=== PATIENT | female | born 1950 | race Caucasian/White ===

== ENCOUNTER 2017-01-09 12:34 | Emergency (ER) | payer MEDICARE, OTHER ==
[~2017-01-09] VITALS: Ht 167.6 cm; Wt 78.5 kg
[~2017-01-09 12:34] MED LIST: LEVO75TA PO; MOEX15TA2 PO; PRAV40TA2 PO
[2017-01-09] MEDS ORDERED: LEVO75TA PO (12:52)
[2017-01-09] MEDS ORDERED: TAMO20TA PO (12:52)
[2017-01-09] MEDS ORDERED: FEBU80TA2 PO (12:52)
[2017-01-09] MEDS ORDERED: AMLO5TAB2 PO (12:52)
[2017-01-09] MEDS ORDERED: LISI40TA PO (12:52)
[2017-01-09 13:26] LABS: HEMATOCRIT 36.8 % (34.6-47.8); HEMOGLOBIN 12.5 g/dL (11.7-16.4); WHITE BLOOD COUNT 5.4 x10^3/uL (3.4-10)
[2017-01-09] MEDS ORDERED: SODIUM CHLORIDE FLUSH 10ML SYR IVF ONE (13:30)
[2017-01-09] MEDS ORDERED: SODIUM CHLORIDE 0.9% 1,000ML IVBOLUS ONE (13:30)
[2017-01-09 13:39] LABS: ASPARTATE AMINO TRANSFERASE 81 U/L (15-37); BLOOD UREA NITROGEN 24 mg/dL (7-18)
[2017-01-09] MEDS ORDERED: OMNIPAQUE 350 MG/ML, 100ML BOTTLE ONE (15:25)
[2017-01-09 16:27] VITALS: BP 145/70
== END 2017-01-09 16:29 | disposition home or self-care (01) ==
LOC: ED 15:45
DX: R10.31 Right lower quadrant pain (principal); R10.11 Right upper quadrant pain; R10.13 Epigastric pain; I10 Essential (primary) hypertension; E07.9 Disorder of thyroid, unspecified; Z85.3 Personal history of malignant neoplasm of breast
CPT/HCPCS: 36415; 74177; 76700; 80053; 81001; 83690; 85025; 87086; 96360; 96361; 99285; J7030; Q9967

== ENCOUNTER → 2017-10-14 | Outpatient (CLI) | payer OTHER, MEDICARE ==
[~2017-10-14] MED LIST changes: +AMLO5TAB2 PO; +FEBU80TA2 PO; +HYDR12.53 PO; +LISI40TA PO; +TAMO20TA PO
[2017-10-14 14:41] LABS: BASOPHILS % (AUTO) 1 % (0-1); EOSINOPHILS # (AUTO) 0.41 x10^3/uL (0-0.4); EOSINOPHILS % (AUTO) 5 % (1-7); LYMPHOCYTES # (AUTO) 1.88 x10^3/uL (1-3.4); LYMPHOCYTES % (AUTO) 23 % (22-44); MD NO; MEAN CORPUSCULAR HEMOGLOBIN 29.6 pg (27.0-34.8); MEAN CORPUSCULAR HGB CONC 33.9 g/dL (32.4-35.8); MEAN CORPUSCULAR VOLUME 87.5 fL (80-100); MEAN PLATELET VOLUME 8.1 fL (7.4-10.4); MONOCYTES # (AUTO) 0.81 x10^3/uL (0.2-0.8); MONOCYTES % (AUTO) 10 % (2-9); NEUTROPHILS # (AUTO) 5.11 x10^3/uL (1.8-6.8); NEUTROPHILS % (AUTO) 62 % (42-75); PLATELET COUNT 289 x10^3/uL (130-400); RED BLOOD COUNT 4.12 x10^6/uL (3.82-5.3); RED CELL DISTRIBUTION WIDTH 12.5 % (9.6-15.2)
[2017-10-14 14:51] LABS: ALANINE AMINOTRANSFERASE 59 U/L (12-78); ALBUMIN 3.9 g/dL (3.4-5.0); ANION GAP 8 mmol/L (5-15); CALCIUM 9.6 mg/dL (8.5-10.1); CHLORIDE 106 mmol/L (98-107); CREATININE 1.42 mg/dL (0.55-1.02)
[2017-10-14 14:54] LABS: ALKALINE PHOSPHATASE 57 U/L (45-117); BILIRUBIN,TOTAL 0.3 mg/dL (0.2-1.0); TOTAL PROTEIN 7.7 g/dL (6.4-8.2)
== END | disposition home or self-care (01) ==
LOC: STAR 13:39
PROVIDERS: ATTEND Obstetrics & Gynecology Female Pelvic Medicine and Reconstructive Surgery
DX: Z01.818 Encounter for other preprocedural examination (principal); N81.4 Uterovaginal prolapse, unspecified; N39.3 Stress incontinence (female) (male)
CPT/HCPCS: 36415; 71046; 80053; 85025; 93005

== ENCOUNTER 2017-11-02 05:37 | Day surgery (SDC) | payer OTHER, MEDICARE ==
[~2017-11-02] VITALS: Ht 167.6 cm; Wt 76.6 kg
[2017-11-02] MEDS ORDERED: LACTATED RINGERS 1,000 ML IV SCH (06:13)
[2017-11-02 06:34] VITALS: BP 145/76
[2017-11-02] MEDS ORDERED: ACETAMINOPHEN 500 MG TABLET PO ONE (07:00)
[2017-11-02] MEDS ORDERED: ONDANSETRON ODT 8 MG PO ONE (07:00)
[2017-11-02] MEDS ORDERED: GABAPENTIN 300 MG CAPSULE PO ONE (07:00)
[2017-11-02] MEDS ORDERED: INDIGO CARMINE 0.8%, 5ML ONE (07:05)
[2017-11-02] MEDS ORDERED: BUPIVACAINE/PF 0.25% ONE (07:05)
[2017-11-02] MEDS ORDERED: THROMBIN 5,000 UNIT VIAL TP ONE (07:05)
[2017-11-02] MEDS ORDERED: EPINEPHRINE 1 MG/ML, 1ML ONE (07:06)
[2017-11-02] MEDS ORDERED: LIDOCAINE GEL 2%, 5ML ONE ×2 (07:23→09:37)
[2017-11-02] MEDS ORDERED: FENTANYL PF 100 MCG/2ML ONE (07:28)
[2017-11-02] MEDS ORDERED: MIDAZOLAM 1 MG/ML, 2ML ONE (07:28)
[2017-11-02] MEDS ORDERED: SUCCINYLCHOLINE 20 MG/ML, 10ML ONE (08:12)
[2017-11-02] MEDS ORDERED: ONDANSETRON 2MG/ML, 2ML ONE (08:12)
[2017-11-02] MEDS ORDERED: ROCURONIUM 10MG/ML,5ML ONE (08:12)
[2017-11-02] MEDS ORDERED: PROPOFOL 10 MG/ML, 20ML ONE (08:12)
[2017-11-02] MEDS ORDERED: NEOSTIGMINE 1 MG/ML, 10ML ONE (08:12)
[2017-11-02] MEDS ORDERED: DEXAMETHASONE 4 MG/ML, 1ML ONE (08:12)
[2017-11-02] MEDS ORDERED: CEFAZOLIN 1,000 MG ONE (08:12)
[2017-11-02] MEDS ORDERED: GLYCOPYRROLATE 0.2MG/1ML, 5ML ONE (08:12)
[2017-11-02] MEDS ORDERED: SCOPOLAMINE PATCH, 1.5MG PATCH.TD72 TD PRN (08:30)
[2017-11-02] MEDS ORDERED: MORPHINE SULFATE 4 MG/ML, 1ML IVPush PRN (08:30)
[2017-11-02] MEDS ORDERED: ALBUTEROL/IPRATROPIUM 2.5MG/0.5MG, 3 ML NPPB PRN (08:30)
[2017-11-02] MEDS ORDERED: MEPERIDINE/PF 25MG/0.5ML IVPush PRN (08:30)
[2017-11-02] MEDS ORDERED: FENTANYL PF 100 MCG/2ML IV PRN (08:30)
[2017-11-02] MEDS ORDERED: EPHEDRINE 50 MG/ML, 1ML IM PRN (08:30)
[2017-11-02] MEDS ORDERED: PROMETHAZINE 25 MG/ML, 1ML IM PRN (08:30)
[2017-11-02] MEDS ORDERED: PROMETHAZINE 25 MG/ML, 1ML IV PRN (08:30)
[2017-11-02] MEDS ORDERED: MIDAZOLAM 1 MG/ML, 2ML IV PRN (08:30)
[2017-11-02] MEDS ORDERED: OXYcodone 5 MG/5 ML ORAL.SOL UDC PO PRN (08:30)
[2017-11-02] MEDS ORDERED: LABETALOL 5MG/ML, 20ML IV PRN (08:30)
[2017-11-02] MEDS ORDERED: hydrALAzine 20 MG/ML, 1ML IV PRN (08:30)
[2017-11-02] MEDS ORDERED: HYDROmorphone 1 MG/ML, 1ML IV PRN (08:30)
[2017-11-02] MEDS ORDERED: NEOMY/POLYMYXIN B GU IRR. 1 ML IRRIG ONE (09:29)
[2017-11-02] MEDS ORDERED: GENTAMICIN 80 MG/2 ML ONE (09:31)
[2017-11-02] MEDS ORDERED: VANCOMYCIN 500 MG ONE (09:31)
[2017-11-02] MEDS ORDERED: LIDOCAINE-MPF 2% ,5ML ONE (09:35)
[2017-11-02] MEDS ORDERED: MEPERIDINE/PF 50 MG/ML ONE (09:53)
[2017-11-02] MEDS ORDERED: OXYcodone 5 MG/5 ML ORAL.SOL UDC ONE (10:38)
== END 2017-11-02 16:50 | disposition home or self-care (01) ==
LOC: OUT 05:37
PROVIDERS: ATTEND Obstetrics & Gynecology Female Pelvic Medicine and Reconstructive Surgery
DX: N39.3 Stress incontinence (female) (male) (principal); N81.4 Uterovaginal prolapse, unspecified; K66.0 Peritoneal adhesions (postprocedural) (postinfection); N18.3 Chronic kidney disease, stage 3 (moderate); Z85.3 Personal history of malignant neoplasm of breast
CPT/HCPCS: 57260; 57288; 58542; 88305; C1771; C1781; J0171; J0330; J0690; J1100; J1580; J2175; J2250; J2405; J2704; J2710; J3010; J3370; J3490; J7120; Q0162

== ENCOUNTER → 2018-05-13 | Outpatient (CLI) | payer OTHER, MEDICARE ==
[~2018-05-13] MED LIST changes: +AMLO-150 PO; -AMLO5TAB2 PO; +HYDR12.517 PO; -HYDR12.53 PO
== END | disposition home or self-care (01) ==
LOC: CFH 10:03
PROVIDERS: ATTEND Obstetrics & Gynecology Female Pelvic Medicine and Reconstructive Surgery
DX: Z13.820 Encounter for screening for osteoporosis (principal); Z78.0 Asymptomatic menopausal state
CPT/HCPCS: 77080

== ENCOUNTER 2018-12-20 11:15 | Outpatient (CLI) | payer OTHER, MEDICARE ==
[2018-12-20] MEDS ORDERED: LOSA50TA14 PO (11:40)
[2018-12-20 12:18] LABS: ALANINE AMINOTRANSFERASE 56 U/L (12-78); ANION GAP 7 mmol/L (5-15); CALCIUM 9.6 mg/dL (8.5-10.1); CHLORIDE 108 mmol/L (98-107); CREATININE 1.09 mg/dL (0.55-1.02)
[2018-12-20 12:20] LABS: ALKALINE PHOSPHATASE 95 U/L (45-117); BILIRUBIN,TOTAL 0.4 mg/dL (0.2-1.0); TOTAL PROTEIN 8.2 g/dL (6.4-8.2)
== END 2018-12-20 23:59 | disposition home or self-care (01) ==
LOC: STAR 11:15
PROVIDERS: ATTEND Surgery
DX: Z01.818 Encounter for other preprocedural examination (principal); K43.2 Incisional hernia without obstruction or gangrene; R94.31 Abnormal electrocardiogram [ECG] [EKG]
CPT/HCPCS: 36415; 80053; 93005

== ENCOUNTER 2018-12-28 10:54 | Day surgery (SDC) | payer OTHER, MEDICARE ==
[~2018-12-28] VITALS: Ht 167.6 cm; Wt 77.3 kg
[~2018-12-28 10:54] MED LIST changes: +FENTANYL PF 250 MCG/5ML ONE; +LOSA50TA14 PO; +MIDAZOLAM 1 MG/ML, 2ML ONE
[2018-12-28] MEDS ORDERED: LACTATED RINGERS 1,000 ML IV SCH (11:10)
[2018-12-28 11:12] VITALS: BP 150/61
[2018-12-28] MEDS ORDERED: BUPIVACAINE/PF-EPI 0.5% 1:200K ONE (11:13)
[2018-12-28] MEDS ORDERED: LIDOCAINE-MPF 1%, 2ML INFIL ONE (11:30)
[2018-12-28] MEDS ORDERED: EPHEDRINE 50 MG/ML, 1ML ONE (11:34)
[2018-12-28] MEDS ORDERED: DEXAMETHASONE 4 MG/ML, 1ML ONE (12:12)
[2018-12-28] MEDS ORDERED: NEOSTIGMINE 1 MG/ML, 10ML ONE (12:12)
[2018-12-28] MEDS ORDERED: ROCURONIUM 10MG/ML,5ML ONE (12:12)
[2018-12-28] MEDS ORDERED: PROPOFOL 10 MG/ML, 20ML ONE (12:12)
[2018-12-28] MEDS ORDERED: GLYCOPYRROLATE 0.2MG/1ML, 5ML ONE (12:12)
[2018-12-28] MEDS ORDERED: ONDANSETRON 2MG/ML, 2ML ONE (12:12)
[2018-12-28] MEDS ORDERED: CEFAZOLIN 1,000 MG ONE (12:12)
[2018-12-28] MEDS ORDERED: SUCCINYLCHOLINE 20 MG/ML, 10ML ONE (12:12)
[2018-12-28] MEDS ORDERED: OXYcodone 5 MG/5 ML ORAL.SOL UDC PO PRN ×2 (12:30→13:00)
[2018-12-28] MEDS ORDERED: PROMETHAZINE 25 MG/ML, 1ML IV PRN (12:30)
[2018-12-28] MEDS ORDERED: ONDANSETRON ODT 8 MG PO PRN (12:30)
[2018-12-28] MEDS ORDERED: LORazepam 2 MG/ML, 1ML IVPush PRN (12:30)
[2018-12-28] MEDS ORDERED: FENTANYL PF 100 MCG/2ML IV PRN (12:30)
[2018-12-28] MEDS ORDERED: hydrALAzine 20 MG/ML, 1ML IV PRN (12:30)
[2018-12-28] MEDS ORDERED: LABETALOL 5MG/ML, 20ML IV PRN (12:30)
[2018-12-28] MEDS ORDERED: HYDROmorphone 2 MG/ML, 1ML IVPush PRN (12:30)
[2018-12-28] MEDS ORDERED: ONDANSETRON 2MG/ML, 2ML IV PRN (12:30)
[2018-12-28] MEDS ORDERED: PROMETHAZINE 25 MG SUPP PR PRN (12:30)
[2018-12-28] MEDS ORDERED: ACETAMINOPHEN 325 MG TABLET PO PRN (12:30)
[2018-12-28] MEDS ORDERED: SUGAMMADEX 200 MG/2 ML IVPush ONE ×2 (12:32)
[2018-12-28] MEDS ORDERED: OXYcodone 5 MG/5 ML ORAL.SOL UDC ONE (13:31)
[2018-12-28] MEDS ORDERED: ACETAMINOPHEN 650 MG/20.3 ML UDC ONE (13:31)
== END 2018-12-28 15:25 | disposition home or self-care (01) ==
LOC: OUT 10:54
PROVIDERS: ATTEND Surgery
DX: K43.2 Incisional hernia without obstruction or gangrene (principal); I10 Essential (primary) hypertension; Z88.8 Allergy status to other drugs, medicaments and biological substances; Z79.899 Other long term (current) drug therapy; Z79.890 Hormone replacement therapy; Z72.89 Other problems related to lifestyle; Z82.49 Family history of ischemic heart disease and other diseases of the circulatory system
CPT/HCPCS: 49654; C1781; J0330; J0690; J1100; J2250; J2405; J2704; J2710; J3010; J7120; S2900